=== PATIENT | male | born 1970 | race African-American/Black ===

== ENCOUNTER 2018-10-15 09:30 | Emergency (ER) | payer MEDICAID ==
[~2018-10-15] VITALS: Ht 182.9 cm; Wt 80.0 kg
[2018-10-15] MEDS ORDERED: ACETAMINOPHEN 500MG TABLET PO ONE (11:00)
[2018-10-15] MEDS ORDERED: KETOROLAC 60MG/2ML VIAL IM ONE (11:00)
[2018-10-15 11:45] VITALS: BP 150/88
== END 2018-10-15 11:47 | disposition home or self-care (01) ==
LOC: ER 10:12
DX: M54.40 Lumbago with sciatica, unspecified side (principal); F17.200 Nicotine dependence, unspecified, uncomplicated; F12.10 Cannabis abuse, uncomplicated
CPT/HCPCS: 96372; 99283; J1885